=== PATIENT | male | born 1955 | race Caucasian/White ===

== ENCOUNTER → 2024-08-18 | Outpatient (CLI) | payer MEDICARE, SELFPAY ==
--- NOTE | 2024-08-18 13:03 | MRI_ITS ---
STUDY: MR PROSTATE GLAND/ PELVIS WITH T WITHOUT CONTRAST REASON FOR EXAM: Male, 69 years old. high risk prostate cancer, eval disease TECHNIQUE: Standardized fat and water weighted pulse sequences were obtained in all 3 orthogonal planes, pre-and post contrast administration. IV 20ML clariscan was administered for the contrast portion of the examination. COMPARISON: MRI of the prostate gland dated May 13, 2023. CT planning exam of the abdomen and pelvis dated August 10, 2024. FINDINGS: Prostate gland volume/size: 5.08 x 4.21 x 3.43 cm which is mildly enlarged. A 2.59 x 3.16 cm old hematoma/serous fluid collection is present in the posterior midline to left side of the prostate gland directly abutting the anterior aspect of the rectum, consistent with postbiopsy or posttreatment placement in the prostate parenchyma. No additional pelvic fluid collection is present. Anterior fibromuscular stroma: Peripheral zone: Minimal linear fibrotic strands are present in both peripheral zones. Abnormal lobular ill-defined intermediate to low signal tissue in the medial and far anterior aspect of the right peripheral zone measuring 1.21 cm, see image 15/32 series 9. There is enhancement of this focus of soft tissue but no specific diffusion weighted or ADC map signal that is definitive for neoplasm. Central zone: Hyperplastic/BPH with intermediate to low signal nodules and scattered fibrosis and diffuse enhancement. Transitional zone: Hyperplastic/BPH with intermediate to low signal nodules and scattered fibrosis and diffuse enhancement. Prostate capsule: Intact Seminal vesicles: Hypoplastic with preserved bright fluid signal in the bilateral seminal vesicles. No demonstrated mass or abnormal enhancement in the seminal vesicles. Pelvic sidewall lymphadenopathy: None present. Bony structures: No lytic or blastic lesions or abnormal enhancement is present in the bony structures. No marrow edema or occult fractures seen. Normal urinary bladder. Normal visualized small intestine. There are multiple colonic diverticula of the sigmoid colon consistent with chronic diverticulosis. Normal abdominal wall. Small fat-containing inguinal hernias. MRI/Pelvis W/WO Contrast IMPRESSION: 1. Abnormal lobular ill-defined intermediate to low signal tissue in the medial and far anterior aspect of the right peripheral zone measuring 1.21 cm, see image 15/32 series 9. There is enhancement of this focus of soft tissue but no specific diffusion weighted or ADC map signal that is definitive for neoplasm. Findings could be related to postinflammatory or infectious cystic fibrosis, posttraumatic change, or sequela of prostatitis. Necrotic or hypovascular neoplasm can also present in this manner. 2. PI-RADS 3: intermediate (the presence of clinically significant cancer is equivocal) 3. Targeted image guided biopsy of nodules or area of interest can be performed for definitive pathologic assessment of the tissue and diagnosis 4. Prostate PET/CT exam can also be performed to determine if there is viable malignant neoplasm in the prostate gland. Prostate MRI reference: 15-30% of prostate cancers can go undetected on Prostate MRI. Monitoring and assessment by Primary physician, Urology, and oncology service recommended and treated clnically. (Cancers ([place]). 2022Aug 20;15(59):9074. doi: [id number] Prostate Cancers Invisible on Multiparametric MRI: Pathologic Features in Correlation with Whole-Mount Prostatectomy Issa Teran 1,2,*, Shaheen Betancourt 3, Cecil Roberts 1,2, Susan Hicks 1,2, Mitesh Parada 4, Preet Dominguez 5, Rosanna Yuan 6, Davis Overton 1,2, Nasrin Gomez 1,2) Reference information: Normal prostate tissue Benign prostatic hypertrophy cancer/tumor - low signal peripheral , transitional, and central zones malignancy appears as bright on DWI and low signal on ADC map Prostate imaging-reporting and data system (PI-RADS) PI-RADS 1: very low (clinically significant cancer is highly unlikely to be present) PI-RADS 2: low (clinically significant cancer is unlikely to be present) PI-RADS 3: intermediate (the presence of clinically significant cancer is equivocal) PI-RADS 4: high (clinically significant cancer is likely to be present) PI-RADS 5: very high (clinically significant cancer is highly likely to be present) PI-RADS X: component of exam technically inadequate or not performed Prostate malignancy distribution: Peripheral zone: 70-80% Transitional zone: 10-20% Central zone: 5% or less Electronically Signed: Parag Jamison MD at 8:27 EST ,
[2024-08-18 13:35] LABS: CREATININE FINGERSTICK < 1.0 mg/dL (0.70-1.30); EGFR FINGERSTICK > 60.0000 mL/min (>60)
== END | disposition home or self-care (01) ==
PROVIDERS: Referring Provider Student in an Organized Health Care Education/Training Program; Visit Provider Student in an Organized Health Care Education/Training Program
DX: C61 Malignant neoplasm of prostate (principal)
CPT/HCPCS: 72197; A9575